=== PATIENT | female | born 1960 | race Two or more races ===

== ENCOUNTER 2022-05-03 13:10 | Emergency (ER) | payer MEDICAID ==
[~2022-05-03] VITALS: Ht 157.5 cm; Wt 158.0 kg
[~2022-05-03 13:10] MED LIST: ALP15OS OP; ESOM40CA39; FURO40TA4; INSU70IN9 SC; LISI20TA28
[2022-05-03] MEDS ORDERED: SODIUM CHLORIDE 0.9% 1,000 ML IV ONE (14:00)
[2022-05-03] MEDS ORDERED: ASPirin 81 mg TAB PO ONE (14:00)
[2022-05-03] MEDS ORDERED: cloNIDine HCL 0.1 MG TAB PO ONE (14:00)
[2022-05-03 14:32] LABS: Hematocrit 35.5 % (36.0-46.0); Hemoglobin 12.4 g/dL (12.2-16.2); Mean Corpuscular Hemoglobin 32.1 pg (28.0-32.0); Mean Corpuscular Hgb Conc. 34.9 g/dL (32.0-36.0); Red Blood Cells 3.85 10^6/uL (4.0-5.20); Red Cell Distribution Width 12.9 % (11.8-14.3); White Blood Cell 7.7 10^3/uL (4.4-10.8)
[2022-05-03 14:38] LABS: Band Neutrophils % (manual) 0; Basophils % (manual) 0 (0.0-2.0); Blast Cells 0; Metamyelocytes % 0; Myelocytes % 0; Promyelocytes % 0; Reactive Lymphocytes 0
[2022-05-03 14:58] LABS: Albumin 3.7 g/dL (3.4-5.0); Calcium 8.8 mg/dL (8.5-10.1); Magnesium 2.2 mg/dL (1.6-2.6); Potassium 4.5 mmol/L (3.5-5.1)
[2022-05-03 15:01] LABS: BUN/Creatinine Ratio 26.9; Bilirubin, Total 0.6 mg/dL (0.2-1.0); Total Protein 7.2 g/dL (6.4-8.2)
[2022-05-03 15:03] LABS: Eosinophils % (manual) 22 (0-7); Lymphocytes % (manual) 20 (10.0-50.0); Monocytes % (manual) 3 (0-12)
[2022-05-03] MEDS ORDERED: TRIA37.56 PO (17:29)
[2022-05-03] MEDS ORDERED: OLME20TA53 PO (17:29)
[2022-05-03 19:32] VITALS: BP 161/38
== END 2022-05-03 17:22 | disposition home or self-care (01) ==
LOC: ER 13:16
DX: I12.9 Hypertensive chronic kidney disease with stage 1 through stage 4 chronic kidney disease, or unspecified chronic kidney disease (principal); E11.22 Type 2 diabetes mellitus with diabetic chronic kidney disease; E11.65 Type 2 diabetes mellitus with hyperglycemia; N18.30 Chronic kidney disease, stage 3 unspecified; R09.89 Other specified symptoms and signs involving the circulatory and respiratory systems; I25.10 Atherosclerotic heart disease of native coronary artery without angina pectoris; K21.9 Gastro-esophageal reflux disease without esophagitis; Z95.1 Presence of aortocoronary bypass graft; Z95.0 Presence of cardiac pacemaker; Z90.89 Acquired absence of other organs; Z79.4 Long term (current) use of insulin; Z79.899 Other long term (current) drug therapy
CPT/HCPCS: 36415; 71046; 80053; 83735; 84484; 85007; 85027; 93005

== ENCOUNTER → 2023-01-20 | Outpatient (CLI) | payer MEDICAID ==
[~2023-01-20] MED LIST changes: -LISI20TA28; +LISI20TA56; +OLME20TA53 PO; +TRIA37.587 PO
[2023-01-20 15:36] LABS: Urine Bacteria NONE SEEN /hpf (None Seen); Urine Blood 3+ /uL (Negative); Urine Clarity Clear (Clear); Urine Color Yellow (Yellow); Urine Protein, UAD 2+ (Negative); Urine Specific Gravity 1.011 (1.001-1.035); Urine Urobilinogen Normal (Negative); Urine WBC 30 /hpf (0 - 5)
== END | disposition home or self-care (01) ==
LOC: LAB 15:22
PROVIDERS: ATTEND Obstetrics & Gynecology
DX: R33.9 Retention of urine, unspecified (principal)
CPT/HCPCS: 81001; 87086

== ENCOUNTER 2023-03-06 22:19 | Inpatient (IN) | payer OTHER, MEDICAID ==
[~2023-03-06] VITALS: Ht 170.2 cm; Wt 85.0 kg
[~2023-03-06 22:19] MED LIST changes: -FURO40TA4; +FURO40TA4 PO
[2023-03-06 23:36] LABS: Basophils # (auto) 0.1 10 ^3/uL (0-0.2); Basophils % (auto) 0.8 % (0.0-2.0); Eosinophils # (auto) 0.5 10 ^3/uL (0-0.8); Eosinophils % (auto) 5.2 % (0.0-7.0); Hematocrit 35.8 % (36.0-46.0); Lymphocytes % (auto) 11.2 % (10.0-50.0); Mean Corpuscular Hemoglobin 31.3 pg (28.0-32.0); Mean Corpuscular Hgb Conc. 33.5 g/dL (32.0-36.0); Mean Corpuscular Volume 93.3 fL (80.0-100.0); Monocytes # (auto) 0.7 10 ^3/uL (0-1.3); Monocytes % (auto) 8.6 % (0.0-12.0); Neutrophils # (auto) 6.5 10 ^3/uL (1.6-8.6); Neutrophils % (auto) 74.2 % (37.0-80.0); Nucleated Red Blood Cells % 0.1 %; Red Blood Cells 3.84 10^6/uL (4.0-5.20); White Blood Cell 8.7 10^3/uL (4.4-10.8)
[2023-03-06 23:50] LABS: INR 3.87 (0.9-1.15); Partial Thromboplastin Time 46.4 SEC (24.5-34.5); Prothrombin Time 37.2 sec (9.3-11.8)
[2023-03-06 23:53] LABS: Alanine Aminotransferase 33 U/L (7-40); Albumin 4.4 g/dL (3.2-4.8); Alkaline Phosphatase 144 U/L (46-116); Anion Gap 7 (5-15); Aspartate Aminotransferase 57 U/L (13-40); BUN/Creatinine Ratio 19.9 (10.0-20.0); Bilirubin, Total 0.4 mg/dL (0.2-1.0); Blood Urea Nitrogen 40 mg/dL (9-23); Calcium 9.1 mg/dL (8.7-10.4); Carbon Dioxide 17 mmol/L (20-30); Chloride 111 mmol/L (98-107); Glucose 174 mg/dL (74-106); Sodium 135 mmol/L (136-145); Total Protein 7.2 g/dL (5.7-8.2)
[2023-03-06 23:57] LABS: Potassium 6.4 mmol/L (3.5-5.1)
[2023-03-07] VITALS (9 sets, daily range): BP systolic 110–173; BP diastolic 36–74; PULSE 69–116; RESP 8–20; TEMP 98–98.8; O2SAT 95–98
[2023-03-07] MEDS ORDERED: SODIUM ZIRCONIUM CYCL 10 GM PAK PO ONE (00:30)
[2023-03-07] MEDS ORDERED: ALBUTEROL SULF 2.5 MG/0.5ML(0.5%) NEB SOLN NEB ONE (00:30)
[2023-03-07] MEDS ORDERED: FUROSEMIDE 40 MG/4 ML VIAL IV ONE (00:45)
[2023-03-07] MEDS ORDERED: ALBUTEROL SULF 2.5 MG/0.5ML(0.5%) NEB SOLN ONE (00:45)
[2023-03-07] MEDS ORDERED: CALCIUM GLUC 1,000mg/50ml-NS 50 ML IV ONE (00:45)
[2023-03-07] MEDS ORDERED: LABETALOL HCL 5 MG/ML 4ML SYRINGE IV ONE (00:45)
[2023-03-07] MEDS ORDERED: SODIUM BICARBONATE 8.4 % INJ 50ML VIAL IV ONE (00:45)
[2023-03-07] MEDS ORDERED: DEXTROSE (50%) 50ML SYRG IV ONE (01:00)
[2023-03-07] MEDS ORDERED: InsuLIN REG 1unit/0.01ml Soln (100units/ml) IV ONE (01:00)
[2023-03-07] MEDS ORDERED: ACETAMINOPHEN 325 MG TAB PO PRN (01:15)
[2023-03-07] MEDS ORDERED: DEXTROSE (50%) 50ML SYRG IV PRN (01:15)
[2023-03-07] MEDS ORDERED: HYDROcodone-ACET 5/325MG TAB PO PRN (01:15)
[2023-03-07] MEDS ORDERED: ALBUTEROL SULF 2.5 MG/0.5ML(0.5%) NEB SOLN NEB PRN (01:15)
[2023-03-07] MEDS ORDERED: DOCUSATE SOD 100 MG CAP PO PRN (01:15)
[2023-03-07] MEDS ORDERED: hydrALAZINE HCL 20 MG/ML VL IV PRN (01:15)
[2023-03-07] MEDS ORDERED: IPRATROPIUM BROM 0.5 MG/2.5ML INH SOL NEB PRN (01:15)
[2023-03-07] MEDS ORDERED: ONDANSETRON HCL 4 MG/2 ML VIAL IV PRN (01:15)
[2023-03-07] MEDS ORDERED: MORPHINE SULFATE INJ 2 MG/ml SYRG IV PRN (02:00)
[2023-03-07] MEDS ORDERED: NITROGLYCERIN 0.4 MG SL TAB SL PRN (02:00)
[2023-03-07 02:38] LABS: Urine Bacteria MANY /hpf (None Seen); Urine Blood 3+ /uL (Negative); Urine Clarity HAZY (Clear); Urine Color Yellow (Yellow); Urine Hyaline Cast MOD /lpf (0 - 2); Urine Mucus FEW (None Seen); Urine Protein, UAD 2+ (Negative); Urine Specific Gravity 1.011 (1.001-1.035); Urine Urobilinogen Normal (Negative); Urine WBC 53 /hpf (0 - 5); Urine WBC Clumps PRESENT /hpf (None Seen); Urine pH 5.5 (5.0-8.0)
[2023-03-07] MEDS: SODIUM CHLOR 0.9% PF (SALINE LOCK) 10ML VIAL/SYR IV SCH ×3 (05:59→21:25)
[2023-03-07 06:37] LABS: Basophils # (auto) 0.1 10 ^3/uL (0-0.2); Basophils % (auto) 0.8 % (0.0-2.0); Eosinophils # (auto) 0.3 10 ^3/uL (0-0.8); Eosinophils % (auto) 4.1 % (0.0-7.0); Hematocrit 32.1 % (36.0-46.0); Hemoglobin 10.7 g/dL (12.2-16.2); Lymphocytes % (auto) 15.4 % (10.0-50.0); Mean Corpuscular Hemoglobin 31.2 pg (28.0-32.0); Mean Corpuscular Hgb Conc. 33.4 g/dL (32.0-36.0); Mean Corpuscular Volume 93.2 fL (80.0-100.0); Monocytes # (auto) 0.6 10 ^3/uL (0-1.3); Monocytes % (auto) 8.7 % (0.0-12.0); Neutrophils # (auto) 4.7 10 ^3/uL (1.6-8.6); Nucleated Red Blood Cells % 0.1 %; Red Blood Cells 3.44 10^6/uL (4.0-5.20); Red Cell Distribution Width 15.1 % (11.8-14.3); White Blood Cell 6.6 10^3/uL (4.4-10.8)
[2023-03-07] MEDS: InsuLIN REG 1unit/0.01ml Soln (100units/ml) SC SCH ×3 (06:44→17:42)
[2023-03-07] MEDS: ACCU-CHEK COMFORT CURVE STRIP VI SCH ×4 (06:46→21:26)
[2023-03-07 07:03] LABS: Alanine Aminotransferase 23 U/L (7-40); Albumin 3.8 g/dL (3.2-4.8); Alkaline Phosphatase 119 U/L (46-116); Anion Gap 8 (5-15); Aspartate Aminotransferase 34 U/L (13-40); BUN/Creatinine Ratio 16.6 (10.0-20.0); Calcium 8.8 mg/dL (8.7-10.4); Carbon Dioxide 18 mmol/L (20-30); Chloride 109 mmol/L (98-107); Glucose 255 mg/dL (74-106); Potassium 4.6 mmol/L (3.5-5.1); Sodium 135 mmol/L (136-145)
[2023-03-07 07:04] LABS: Bilirubin, Total 0.4 mg/dL (0.2-1.0); Total Protein 6.4 g/dL (5.7-8.2)
[2023-03-07 07:07] LABS: Blood Urea Nitrogen 29 mg/dL (9-23)
[2023-03-07] MEDS: FAMOTIDINE (10MG/ML) 2ML VL IV SCH ×2 (10:11→21:24)
[2023-03-07] MEDS: FUROSEMIDE 40 MG/4 ML VIAL IV SCH (10:11)
[2023-03-07] MEDS: CARVEDILOL 12.5 MG TAB PO SCH ×2 (10:12→21:25)
[2023-03-07] MEDS: amLODIPine BESYLATE 5 MG TAB PO SCH (10:13)
[2023-03-07] MEDS ORDERED: cefTRIAXone 1GM/50ML D5W 50 ML IV ONE (14:00)
[2023-03-07] MEDS ORDERED: InsuLIN REG 1unit/0.01ml Soln (100units/ml) SC SCH (22:00)
[2023-03-08] VITALS (7 sets, daily range): BP systolic 134–160; BP diastolic 59–99; PULSE 75–120; RESP 14–20; TEMP 36.4; O2SAT 95–99
[2023-03-08] MEDS: SODIUM CHLOR 0.9% PF (SALINE LOCK) 10ML VIAL/SYR IV SCH ×2 (06:21→17:17)
[2023-03-08] MEDS: ACCU-CHEK COMFORT CURVE STRIP VI SCH ×3 (06:22→17:18)
[2023-03-08] MEDS: InsuLIN REG 1unit/0.01ml Soln (100units/ml) SC SCH ×3 (06:29→17:48)
[2023-03-08 06:57] LABS: Basophils # (auto) 0.1 10 ^3/uL (0-0.2); Basophils % (auto) 0.9 % (0.0-2.0); Eosinophils # (auto) 0.4 10 ^3/uL (0-0.8); Eosinophils % (auto) 7.9 % (0.0-7.0); Hematocrit 33.3 % (36.0-46.0); Lymphocytes # (auto) 0.9 10 ^3/uL (0.4-5.4); Lymphocytes % (auto) 15.6 % (10.0-50.0); Mean Corpuscular Hemoglobin 31.1 pg (28.0-32.0); Mean Corpuscular Hgb Conc. 33.1 g/dL (32.0-36.0); Mean Corpuscular Volume 93.9 fL (80.0-100.0); Monocytes # (auto) 0.4 10 ^3/uL (0-1.3); Monocytes % (auto) 8.1 % (0.0-12.0); Neutrophils # (auto) 3.7 10 ^3/uL (1.6-8.6); Neutrophils % (auto) 67.5 % (37.0-80.0); Nucleated Red Blood Cells % 0.1 %; Red Blood Cells 3.55 10^6/uL (4.0-5.20); Red Cell Distribution Width 15.1 % (11.8-14.3); White Blood Cell 5.5 10^3/uL (4.4-10.8)
[2023-03-08 07:11] LABS: Alanine Aminotransferase 21 U/L (7-40); Albumin 3.9 g/dL (3.2-4.8); Alkaline Phosphatase 112 U/L (46-116); Anion Gap 9 (5-15); Aspartate Aminotransferase 15 U/L (13-40); BUN/Creatinine Ratio 22.6 (10.0-20.0); Calcium 9.2 mg/dL (8.7-10.4); Carbon Dioxide 22 mmol/L (20-30); Chloride 106 mmol/L (98-107); Glucose 246 mg/dL (74-106); Phosphorus 4.6 mg/dL (2.4-5.1); Sodium 137 mmol/L (136-145); Uric Acid 8.2 mg/dL (3.1-7.8)
[2023-03-08 07:12] LABS: Bilirubin, Total 0.7 mg/dL (0.2-1.0); Total Protein 6.4 g/dL (5.7-8.2)
[2023-03-08 07:32] LABS: Blood Urea Nitrogen 42 mg/dL (9-23)
[2023-03-08] MEDS ORDERED: cefTRIAXone 1GM/50ML D5W 50 ML IV SCH (09:00)
[2023-03-08] MEDS ORDERED: WARF-110 PO (10:31)
[2023-03-08] MEDS ORDERED: FERR325T24 PO (10:32)
[2023-03-08] MEDS ORDERED: LATA0.008 OP (10:36)
[2023-03-08] MEDS ORDERED: PRAV20TA3 PO (10:38)
[2023-03-08] MEDS ORDERED: SILD50TA42 PO (10:39)
[2023-03-08] MEDS ORDERED: HYDR-4296 PO (10:41)
[2023-03-08] MEDS ORDERED: HYDR25TA5 PO (10:43)
[2023-03-08] MEDS ORDERED: ESOM40CA39 PO (10:43)
[2023-03-08] MEDS ORDERED: SOTA80TA PO ×2 (10:44→12:58)
[2023-03-08] MEDS ORDERED: FURO40TA4 PO (10:44)
[2023-03-08] MEDS ORDERED: OLME1TAB71 PO (10:46)
[2023-03-08] MEDS: FAMOTIDINE (10MG/ML) 2ML VL IV SCH (11:56)
[2023-03-08] MEDS: FUROSEMIDE 40 MG/4 ML VIAL IV SCH (12:00)
[2023-03-08] MEDS: amLODIPine BESYLATE 5 MG TAB PO SCH (12:03)
[2023-03-08] MEDS ORDERED: CIPR-173 PO (12:37)
[2023-03-08] MEDS ORDERED: FUROSEMIDE 40 MG/4 ML VIAL IV SCH (18:00)
[2023-03-08] MEDS ORDERED: SOTALOL HCL 80 MG TAB PO SCH (22:00)
== END 2023-03-08 18:00 | disposition home or self-care (01) | DRG 291 ==
LOC: EDBD 22:19 → ER 22:19 → TELE 03-07 01:56 → TELE-WESTW 03-07 14:52
PROVIDERS: ADMIT Nurse Practitioner Family; ATTEND Family Medicine
DX: I13.0 Hypertensive heart and chronic kidney disease with heart failure and stage 1 through stage 4 chronic kidney disease, or unspecified chronic kidney disease (principal); E43 Unspecified severe protein-calorie malnutrition; I50.33 Acute on chronic diastolic (congestive) heart failure; N39.0 Urinary tract infection, site not specified; N17.9 Acute kidney failure, unspecified; E87.5 Hyperkalemia; E11.65 Type 2 diabetes mellitus with hyperglycemia; I27.20 Pulmonary hypertension, unspecified; N18.31 Chronic kidney disease, stage 3a; E11.22 Type 2 diabetes mellitus with diabetic chronic kidney disease; K21.9 Gastro-esophageal reflux disease without esophagitis; D25.9 Leiomyoma of uterus, unspecified; I36.1 Nonrheumatic tricuspid (valve) insufficiency; I48.91 Unspecified atrial fibrillation; I25.10 Atherosclerotic heart disease of native coronary artery without angina pectoris; Z95.1 Presence of aortocoronary bypass graft; Z79.899 Other long term (current) drug therapy; Z79.4 Long term (current) use of insulin; Z95.0 Presence of cardiac pacemaker; Z95.2 Presence of prosthetic heart valve; Z79.01 Long term (current) use of anticoagulants; Z83.3 Family history of diabetes mellitus; Z90.89 Acquired absence of other organs; Z68.29 Body mass index [BMI] 29.0-29.9, adult; I16.0 Hypertensive urgency
CPT/HCPCS: 36415; 71045; 76775; 80053; 81001; 82962; 83036; 83735; 83880; 84100; 84132; 84443; 84484; 84550; 85025; 85610; 85730; 87040; 93005; 93306; 94640; 96374; 96375; G0378; J0696; J1815; J3490

== ENCOUNTER 2023-10-20 21:30 | Inpatient (IN) | payer OTHER, MEDICAID ==
[~2023-10-20] VITALS: Ht 157.5 cm; Wt 75.0 kg
[~2023-10-20 21:30] MED LIST changes: +CIPR-173 PO; -ESOM40CA39; +ESOM40CA39 PO; +FERR325T24 PO; +HYDR25TA5 PO; +LATA0.008 OP; -LISI20TA56; -OLME20TA53 PO; +OLME20TA67 PO; +PRAV20TA3 PO; +SILD50TA PO; +SOTA80TA PO; -TRIA37.587 PO; +WARF-110 PO
[2023-10-20 21:57] LABS: Basophils # (auto) 0.1 10 ^3/uL (0-0.2); Basophils % (auto) 1.3 % (0.0-2.0); Eosinophils # (auto) 0.2 10 ^3/uL (0-0.8); Eosinophils % (auto) 2.9 % (0.0-7.0); Hematocrit 42.8 % (36.0-46.0); Hemoglobin 13.9 g/dL (12.2-16.2); Lymphocytes # (auto) 1.2 10 ^3/uL (0.4-5.4); Lymphocytes % (auto) 21.2 % (10.0-50.0); Mean Corpuscular Hemoglobin 31.5 pg (28.0-32.0); Mean Corpuscular Hgb Conc. 32.5 g/dL (32.0-36.0); Mean Corpuscular Volume 96.7 fL (80.0-100.0); Monocytes # (auto) 0.5 10 ^3/uL (0-1.3); Monocytes % (auto) 8.6 % (0.0-12.0); Neutrophils # (auto) 3.6 10 ^3/uL (1.6-8.6); Nucleated Red Blood Cells % 0.3 %; Red Blood Cells 4.42 10^6/uL (4.0-5.20); Red Cell Distribution Width 17.1 % (11.8-14.3); White Blood Cell 5.5 10^3/uL (4.4-10.8)
[2023-10-20 22:06] LABS: Chloride 104 mmol/L (98-107); Sodium 139 mmol/L (136-145)
[2023-10-20 22:07] LABS: Anion Gap 7 (5-15); Calcium 9.6 mg/dL (8.5-10.1); Carbon Dioxide 28 mmol/L (20-30)
[2023-10-20 22:12] LABS: Blood Urea Nitrogen 17 mg/dL (9-23); Glucose 275 mg/dL (74-106)
[2023-10-20 23:39] VITALS: PULSE 111; RESP 26; O2SAT 97
[2023-10-21] VITALS (7 sets, daily range): BP systolic 143–177; BP diastolic 53–74; PULSE 86–102; RESP 18–20; TEMP 97.3–97.5; O2SAT 95–99
[2023-10-21] MEDS: LABETALOL HCL 5 MG/ML 4ML SYRINGE IV ONE (00:57)
[2023-10-21] MEDS: ENOXAPARIN SOD 80 MG/0.8ML SYRINGE SC ONE (00:58)
[2023-10-21] MEDS ORDERED: DEXTROSE (50%) 50ML SYRG IV PRN (03:30)
[2023-10-21] MEDS ORDERED: ACETAMINOPHEN 325 MG TAB PO PRN (03:30)
[2023-10-21] MEDS ORDERED: MORPHINE SULFATE INJ 2 MG/ml SYRG IV PRN (03:30)
[2023-10-21] MEDS ORDERED: DOCUSATE SOD 100 MG CAP PO PRN (03:30)
[2023-10-21] MEDS ORDERED: FUROSEMIDE 40 MG/4 ML VIAL IV ONE (03:30)
[2023-10-21] MEDS ORDERED: NITROGLYCERIN 0.4 MG SL TAB SL PRN (03:30)
[2023-10-21] MEDS: FUROSEMIDE 40 MG/4 ML VIAL IV ONE (04:00)
[2023-10-21] MEDS: ACCU-CHEK COMFORT CURVE STRIP VI SCH (04:06)
[2023-10-21] MEDS: InsuLIN REG 1unit/0.01ml Soln (100units/ml) SC SCH (04:10)
[2023-10-21] MEDS: SODIUM CHLOR 0.9% PF (SALINE LOCK) 10ML VIAL/SYR IV SCH (06:27)
[2023-10-21 07:18] LABS: Basophils # (auto) 0.1 10 ^3/uL (0-0.2); Basophils % (auto) 1.4 % (0.0-2.0); Eosinophils # (auto) 0 10 ^3/uL (0-0.8); Eosinophils % (auto) 0.8 % (0.0-7.0); Hematocrit 42.1 % (36.0-46.0); Hemoglobin 13.6 g/dL (12.2-16.2); Lymphocytes % (auto) 17.1 % (10.0-50.0); Mean Corpuscular Hemoglobin 31.5 pg (28.0-32.0); Mean Corpuscular Hgb Conc. 32.3 g/dL (32.0-36.0); Mean Corpuscular Volume 97.6 fL (80.0-100.0); Monocytes # (auto) 0.5 10 ^3/uL (0-1.3); Monocytes % (auto) 8.5 % (0.0-12.0); Neutrophils # (auto) 4.4 10 ^3/uL (1.6-8.6); Neutrophils % (auto) 72.2 % (37.0-80.0); Nucleated Red Blood Cells % 0.1 %; Red Blood Cells 4.31 10^6/uL (4.0-5.20); Red Cell Distribution Width 17.3 % (11.8-14.3); White Blood Cell 6.1 10^3/uL (4.4-10.8)
[2023-10-21 07:35] LABS: Albumin 3.8 g/dL (3.2-4.8); Alkaline Phosphatase 123 U/L (46-116); Anion Gap 7 (5-15); Aspartate Aminotransferase 16 U/L (13-40); BUN/Creatinine Ratio 11.2 (10.0-20.0); Blood Urea Nitrogen 18 mg/dL (9-23); Calcium 9.6 mg/dL (8.5-10.1); Carbon Dioxide 28 mmol/L (20-30); Chloride 104 mmol/L (98-107); Glucose 249 mg/dL (74-106); Potassium 3.4 mmol/L (3.5-5.1); Sodium 139 mmol/L (136-145)
[2023-10-21 07:38] LABS: Alanine Aminotransferase < 9 U/L (7-40)
[2023-10-21] MEDS: POTASSIUM CHL 20 Meq TABLET PO ONE (09:16)
[2023-10-21] MEDS: FAMOTIDINE (10MG/ML) 2ML VL IV SCH (09:16)
[2023-10-21] MEDS: HEPARIN SODIUM (PORCINE) 5000 UNITS/ML 1ML VIAL SC SCH (09:19)
[2023-10-21] MEDS: ONDANSETRON HCL 4 MG/2 ML VIAL IV PRN (09:20)
[2023-10-21] MEDS: hydrALAZINE HCL 20 MG/ML VL IV PRN (09:50)
[2023-10-21] MEDS ORDERED: ASPirin 81 mg TAB PO SCH (10:00)
[2023-10-21] MEDS ORDERED: FAMOTIDINE (10MG/ML) 2ML VL IV SCH (12:30)
[2023-10-21] MEDS: cefTRIAXone 1GM/50ML D5W 50 ML IV SCH (14:16)
[2023-10-21] MEDS: AZITHROMYCIN 500MG/ 250ML 250 ML IV SCH (14:52)
[2023-10-21 16:57] LABS: Urine Bacteria None Seen /hpf (None Seen)
[2023-10-21 17:26] LABS: Urine Blood 2+ /uL (Negative); Urine Clarity Clear (Clear); Urine Color Yellow (Yellow); Urine Mucus FEW (None Seen); Urine Protein, UAD 2+ (Negative); Urine Specific Gravity 1.012 (1.001-1.035); Urine Urobilinogen Normal (Negative); Urine WBC 2 /hpf (0 - 5); Urine pH 5.5 (5.0-9.0)
[2023-10-21] MEDS: SACUBITRIL-VALSARTAN 24mg/26mg TAB PO SCH (18:18)
[2023-10-21] MEDS: HYDROcodone-ACET 5/325MG TAB PO PRN (20:12)
[2023-10-21] MEDS: SPIRONOLACTONE 25 MG TAB PO SCH (20:23)
[2023-10-21] MEDS: ENOXAPARIN SOD 80 MG/0.8ML SYRINGE SC SCH (20:25)
[2023-10-21 20:54] LABS: Partial Thromboplastin Time 36.4 SEC (24.5-34.5); Prothrombin Time 45.3 sec (9.3-11.8)
[2023-10-21 20:57] LABS: INR 4.8 (0.9-1.15)
[2023-10-21 21:51] LABS: Amphetamine Screen, Urine Neg (NEGATIVE)
[2023-10-21 21:52] LABS: Barbiturate Scree,Urine Neg (NEGATIVE); Benzodiazephine Screen, Urine Neg (NEGATIVE); Cannabinoid Screen, Urine Neg (NEGATIVE); Cocaine Screen, Urine Neg (NEGATIVE); Opiate Scree,Urine Neg (NEGATIVE); Phencyclidine Screen, Urine Neg (NEGATIVE)
[2023-10-22] VITALS (8 sets, daily range): BP systolic 102–157; BP diastolic 44–72; PULSE 92–130; RESP 16–20; TEMP 97.3–97.9; O2SAT 96–99
[2023-10-22] MEDS ORDERED: POTASSIUM EFFERVESENT TAB 25 MEQ PO ONE (05:15)
[2023-10-22] MEDS: METOCLOPRAMIDE HCL 5MG/ml INJ 2ml VIAL IV PRN (05:43)
[2023-10-22] MEDS: FUROSEMIDE 100 MG/10ML VIAL IV SCH (05:43)
[2023-10-22] MEDS: POTASSIUM CHL 20 Meq TABLET PO ONE ×2 (06:15→10:30)
[2023-10-22 07:10] LABS: Basophils # (auto) 0.1 10 ^3/uL (0-0.2); Basophils % (auto) 1.8 % (0.0-2.0); Eosinophils # (auto) 0.1 10 ^3/uL (0-0.8); Hematocrit 42.8 % (36.0-46.0); Hemoglobin 14.1 g/dL (12.2-16.2); Lymphocytes # (auto) 1.1 10 ^3/uL (0.4-5.4); Lymphocytes % (auto) 17.4 % (10.0-50.0); Mean Corpuscular Volume 96.9 fL (80.0-100.0); Monocytes # (auto) 0.5 10 ^3/uL (0-1.3); Monocytes % (auto) 8.3 % (0.0-12.0); Neutrophils # (auto) 4.6 10 ^3/uL (1.6-8.6); Neutrophils % (auto) 70.5 % (37.0-80.0); Nucleated Red Blood Cells % 0.5 %; Red Blood Cells 4.41 10^6/uL (4.0-5.20); Red Cell Distribution Width 17.5 % (11.8-14.3); White Blood Cell 6.6 10^3/uL (4.4-10.8)
[2023-10-22 07:26] LABS: Albumin 3.6 g/dL (3.2-4.8); Alkaline Phosphatase 114 U/L (46-116); Anion Gap 8 (5-15); Aspartate Aminotransferase 13 U/L (13-40); BUN/Creatinine Ratio 9.2 (10.0-20.0); Bilirubin, Total 1.8 mg/dL (0.2-1.0); Blood Urea Nitrogen 15 mg/dL (9-23); Calcium 9.7 mg/dL (8.5-10.1); Carbon Dioxide 25 mmol/L (20-30); Chloride 102 mmol/L (98-107); Glucose 136 mg/dL (74-106); Potassium 3.4 mmol/L (3.5-5.1); Sodium 135 mmol/L (136-145); Total Protein 6.8 g/dL (5.7-8.2)
[2023-10-22 07:30] LABS: Alanine Aminotransferase < 9 U/L (7-40)
[2023-10-22 07:38] LABS: Partial Thromboplastin Time 48.4 SEC (24.5-34.5); Prothrombin Time 50.7 sec (9.3-11.8)
[2023-10-22 07:41] LABS: INR 5.42 (0.9-1.15)
[2023-10-22] MEDS ORDERED: FUROSEMIDE 40 MG/4 ML VIAL IV SCH (10:00)
[2023-10-22] MEDS: POTASSIUM CHL 20 Meq TABLET PO SCH (10:30)
[2023-10-22] MEDS: METOPROLOL TARTRATE 25 MG TAB PO SCH (14:54)
[2023-10-22] MEDS ORDERED: SILD20TA12 PO (15:36)
[2023-10-22] MEDS ORDERED: HYDR12.55 PO (15:36)
[2023-10-22] MEDS ORDERED: ESOM20CA PO (15:36)
[2023-10-22] MEDS ORDERED: DRON400T PO (15:39)
[2023-10-22] MEDS ORDERED: MET50T PO (15:39)
[2023-10-22] MEDS ORDERED: TEMA15CA2 PO (15:39)
[2023-10-22] MEDS ORDERED: ALBUTEROL SULF 2.5 MG/0.5ML(0.5%) NEB SOLN NEB ONE (17:30)
[2023-10-22] MEDS ORDERED: IPRATROPIUM BROM 0.5 MG/2.5ML INH SOL NEB PRN (18:00)
[2023-10-22] MEDS ORDERED: LEVALBUTEROL HCL 1.25 MG/3 ML NEB NEB PRN (18:00)
[2023-10-22] MEDS: ALBUTEROL SULF 2.5 MG/0.5ML(0.5%) NEB SOLN ONE (18:02)
[2023-10-22] MEDS: LORazepam 0.5 MG TAB PO PRN (18:22)
[2023-10-23] MEDS ORDERED: FAMOTIDINE (10MG/ML) 2ML VL IV SCH (10:00)
== END 2023-10-22 18:30 | disposition left against medical advice (07) | DRG 177 ==
LOC: EDBD 21:30 → ER 21:30 → TELE 10-21 03:36 → TELE-CENTR 10-21 16:14
PROVIDERS: ADMIT Internal Medicine Pulmonary Disease; ATTEND Emergency Medicine
DX: J15.69 Pneumonia due to other Gram-negative bacteria (principal); I21.A1 Myocardial infarction type 2; I50.23 Acute on chronic systolic (congestive) heart failure; J96.01 Acute respiratory failure with hypoxia; I13.0 Hypertensive heart and chronic kidney disease with heart failure and stage 1 through stage 4 chronic kidney disease, or unspecified chronic kidney disease; I16.1 Hypertensive emergency; N17.9 Acute kidney failure, unspecified; J15.9 Unspecified bacterial pneumonia; E11.65 Type 2 diabetes mellitus with hyperglycemia; I25.10 Atherosclerotic heart disease of native coronary artery without angina pectoris; K21.9 Gastro-esophageal reflux disease without esophagitis; E87.6 Hypokalemia; I48.0 Paroxysmal atrial fibrillation; R91.1 Solitary pulmonary nodule; N18.32 Chronic kidney disease, stage 3b; I27.22 Pulmonary hypertension due to left heart disease; E11.22 Type 2 diabetes mellitus with diabetic chronic kidney disease; I45.10 Unspecified right bundle-branch block; Z79.01 Long term (current) use of anticoagulants; Z95.1 Presence of aortocoronary bypass graft; Z79.899 Other long term (current) drug therapy; Z95.0 Presence of cardiac pacemaker; Z95.3 Presence of xenogenic heart valve; Z80.41 Family history of malignant neoplasm of ovary; Z83.3 Family history of diabetes mellitus
CPT/HCPCS: 36415; 71045; 71250; 76604; 80048; 80053; 80307; 81001; 82962; 83036; 83880; 84484; 85025; 85610; 85730; 93005; 93306; 93971; 99291; G0378; J1815; J2405; J3490